=== PATIENT | male | born 1965 | race Caucasian/White ===

== ENCOUNTER 2023-07-22 17:13 | Inpatient (IN) | payer BC ==
[2023-07-22] VITALS (24 sets, daily range): BP systolic 138–159; BP diastolic 89–95; PULSE 72–105; TEMP 98.3–98.5; O2SAT 96–98
[~2023-07-22] VITALS: Ht 170.2 cm; Wt 80.6 kg
[2023-07-22 17:27] LABS: BASO # 0.1 K/mm3 (0.0-0.2); BASO % 0.6 % (0.0-2.0); EOS # 0.1 K/mm3 (0.0-0.7); EOS % 1.1 % (0.0-4.0); GRAN # 6.4 K/mm3 (1.4-6.5); GRAN % 74.2 % (42.2-75.2); HEMATOCRIT 38.9 % (42.0-52.0); HEMOGLOBIN 13.1 g/dl (13.5-18.0); LYMPH # 1.3 K/mm3 (1.2-3.4); LYMPH % 14.7 % (20.0-51.0); MEAN CELL VOLUME 87 fl (80.0-100.0); MEAN CORPUSCULAR HEMOGLOBIN 29 pg (27-31); MEAN CORPUSCULAR HGB CONC 34 g/dl (33.0-37.0); MONO # 0.8 K/mm3 (0.1-0.6); MONO % 9.2 % (1.7-9.3); PLATELET COUNT 188 K/mm3 (130-400); RED BLOOD COUNT 4.45 M/mm3 (4.20-5.60); REDCELL DISTRIBUTION WIDTH-CV 12.7 % (11.5-14.5)
[2023-07-22] MEDS ORDERED: Morphine 4 MG/ML VIAL IV ONE (17:30)
[2023-07-22] MEDS ORDERED: Heparin/D5W 250 ML IV SCH ×2 (17:45→18:45)
[2023-07-22] MEDS ORDERED: Heparin 5,000 UNITS/ML 1 ML VIAL IV PRN ×2 (17:45→18:45)
[2023-07-22] MEDS ORDERED: Nitroglycerin/D5W 250 ML IV ONE (17:45)
[2023-07-22] MEDS ORDERED: Heparin 5,000 UNITS/ML 1 ML VIAL IV ONE (17:45)
[2023-07-22 18:15] LABS: ALBUMIN 4.4 g/dL (3.5-5.0); CALCIUM 9.6 mg/dL (8.4-10.2); CREATININE, serum 1.08 mg/dL (0.72-1.25); POTASSIUM 4.4 mEq/L (3.5-4.5); TOTAL PROTEIN 7.5 g/dl (6.2-8.1)
[2023-07-22 18:26] LABS: TROPONIN-I 0.072 ng/mL (0.00-0.033)
[2023-07-22] MEDS ORDERED: Docusate Sodium 100 MG CAP PO PRN (18:45)
[2023-07-22] MEDS ORDERED: Ondansetron 4 MG/2 ML VIAL IV PRN (18:45)
[2023-07-22] MEDS ORDERED: Polyethylene Glycol 3350 17 GM PDS PO PRN (18:45)
[2023-07-22] MEDS ORDERED: Acetaminophen 325 MG TAB PO PRN (18:45)
[2023-07-22] MEDS ORDERED: Nitroglycerin/D5W 250 ML IV SCH (18:45)
[2023-07-22] MEDS ORDERED: Morphine 4 MG/ML VIAL IV PRN (19:00)
[2023-07-22] MEDS ORDERED: ASPIRIN 81M81 MG/TA2 PO (19:01)
[2023-07-22] MEDS ORDERED: TOPROL XL 25MG25 MG PO (19:01)
[2023-07-22 19:07] LABS: PARTIAL THROMBOPLASTIN TIME 123.8 SECONDS (26.0-37.0)
[2023-07-22] MEDS ORDERED: Atorvastatin 40 MG TAB PO SCH (21:00)
[2023-07-22] MEDS ORDERED: Dextrose (Glucose) 15 GM (4 x 3.75 GM) Chewable TABLET PACK PO PRN (21:30)
[2023-07-22] MEDS ORDERED: Glucagon 1 MG VIAL IM PRN (21:30)
[2023-07-22] MEDS ORDERED: Dextrose 50% Water 25 GM/50 ML SYRINGE IV PRN (21:30)
[2023-07-22] MEDS ORDERED: NS 1,000 ML IV SCH (23:30)
[2023-07-23] VITALS (90 sets, daily range): BP systolic 129–169; BP diastolic 78–104; PULSE 65–86; TEMP 98–98.5; O2SAT 93–99
[2023-07-23 03:46] LABS: BASO # 0.1 K/mm3 (0.0-0.2); BASO % 0.7 % (0.0-2.0); EOS # 0.1 K/mm3 (0.0-0.7); EOS % 1.2 % (0.0-4.0); GRAN # 5.1 K/mm3 (1.4-6.5); GRAN % 65.8 % (42.2-75.2); HEMATOCRIT 37.1 % (42.0-52.0); HEMOGLOBIN 12.6 g/dl (13.5-18.0); LYMPH # 1.6 K/mm3 (1.2-3.4); LYMPH % 21.3 % (20.0-51.0); MEAN CELL VOLUME 86 fl (80.0-100.0); MEAN CORPUSCULAR HEMOGLOBIN 29 pg (27-31); MEAN CORPUSCULAR HGB CONC 34 g/dl (33.0-37.0); MEAN PLATELET VOLUME 10.2 fl (7.4-10.4); MONO # 0.8 K/mm3 (0.1-0.6); MONO % 10.7 % (1.7-9.3); PLATELET COUNT 210 K/mm3 (130-400); RED BLOOD COUNT 4.33 M/mm3 (4.20-5.60); REDCELL DISTRIBUTION WIDTH-CV 12.8 % (11.5-14.5)
[2023-07-23 04:02] LABS: CALCIUM 8.8 mg/dL (8.4-10.2); CREATININE, serum 0.8 mg/dL (0.72-1.25); POTASSIUM 4.1 mEq/L (3.5-4.5)
--- NOTE | 2023-07-23 07:00 | NUR ---
REPORT RECEIVED FROM ILDA ROBIN. PT RESTING IN BED. NITRO AND HEPARIN INFUSING ORDERED. PT IS ALERT AND ORIENTED, USES CALL LIGHT FOR NEEDS.
[2023-07-23] MEDS ORDERED: Insulin Lispro (HumaLOG) SQ SCH (08:00)
[2023-07-23 08:47] LABS: CHOLESTEROL RISK RATIO 4.1
[2023-07-23] MEDS ORDERED: Pantoprazole 40 MG in NS 10 ML IV SCH (09:00)
[2023-07-23] MEDS ORDERED: 1/2 NS 1,000 ML IV SCH ×2 (09:15→12:45)
--- NOTE | 2023-07-23 09:45 | NUR ---
SEE MERGE FOR PROCEDURE DOCUMENTATION
[2023-07-23] MEDS ORDERED: Bivalirudin 250 MG in NS 50 ML IV SCH (10:39)
[2023-07-23] MEDS ORDERED: Ticagrelor 90 MG TAB PO SCH ×2 (10:41→21:00)
[2023-07-23] MEDS ORDERED: fentaNYL 50 MCG/ML 2 ML VIAL IV SCH (10:42)
[2023-07-23] MEDS ORDERED: Midazolam 2 MG/2 ML VIAL IV SCH (10:43)
[2023-07-23] MEDS ORDERED: Verapamil 2.5 MG/ML 2 ML VIAL IA SCH (10:51)
[2023-07-23] MEDS ORDERED: Heparin 1,000 UNITS/ML 10 ML Multi-Dose VIAL IV SCH (10:53)
[2023-07-23] MEDS ORDERED: Heparin 1,000 UNITS/ML 10 ML Multi-Dose VIAL IA SCH (10:54)
[2023-07-23] MEDS ORDERED: Nitroglycerin 100 MCG/ML (Cath Lab) 10 ML VIAL INCOR SCH (10:56)
[2023-07-23] MEDS ORDERED: Iohexol 350 - 100 ML VIAL INCOR ONE (10:57)
--- NOTE | 2023-07-23 11:12 | NUR ---
PATIENT ALERT AND ORIENTED, DENIES CHEST PAIN OR SOB. DENIES NAUSEA. REPORTS HEADACHE FROM PRE-PROCEDURE IS IMPROVED. PATIENT TRANSFERRED VIA SLIDEBOARD TO BED, POSITIONED FOR COMFORT. RADIAL SITE CLEANED WITH Q-TIP PER ILDA COHEN. TRANSFER OF CARE REPORT TO ILDA GARCES. PATIENT TRANSPORTED VIA BED AND BUMPER STRAIGHTENER TO ICU 8. SPOUSE BROUGHT TO BEDSIDE. VITAL SIGNS TAKEN ON ARRIVAL, VSS. RIGHT RADIAL SITE REMAINS CDI. CALL LIGHT PLACED WITHIN REACH, BED IN LOWEST POSITION, X3 BEDRAILS IN PLACE.
--- NOTE | 2023-07-23 13:52 | NUR ---
Bar Host/Hostess met with patient and to discuss discharge planning. Patient verified that he and Christina ([phone]) live in [place]. Patient sees Dr. Freitas as his PCP, uses [facility] pharmacy, and has a bipap at home that he doesn't use. Patient stated he requires no DME and plans to return home as soon as possible. No discharge needs identified at this time. Discharge plan: Home
--- NOTE | 2023-07-23 19:25 | NUR ---
PATIENT RESTING IN BED ALERT AND CALM. RIGHT RADIAL CATH SITE INTACT. NO ACUTE EVENTS.
[2023-07-24] VITALS (63 sets, daily range): BP systolic 161–165; BP diastolic 84–93; PULSE 64–79; TEMP 98; O2SAT 94–99
[2023-07-24 03:35] LABS: BASO % 0.1 % (0.0-2.0); EOS # 0.1 K/mm3 (0.0-0.7); EOS % 0.7 % (0.0-4.0); GRAN # 5.9 K/mm3 (1.4-6.5); GRAN % 72.1 % (42.2-75.2); HEMATOCRIT 39.4 % (42.0-52.0); HEMOGLOBIN 13.6 g/dl (13.5-18.0); LYMPH # 1.4 K/mm3 (1.2-3.4); LYMPH % 16.7 % (20.0-51.0); MEAN CELL VOLUME 85 fl (80.0-100.0); MEAN CORPUSCULAR HEMOGLOBIN 29 pg (27-31); MEAN CORPUSCULAR HGB CONC 35 g/dl (33.0-37.0); MEAN PLATELET VOLUME 10.2 fl (7.4-10.4); MONO # 0.8 K/mm3 (0.1-0.6); MONO % 10.2 % (1.7-9.3); PLATELET COUNT 228 K/mm3 (130-400); RED BLOOD COUNT 4.62 M/mm3 (4.20-5.60); REDCELL DISTRIBUTION WIDTH-CV 12.6 % (11.5-14.5)
[2023-07-24 03:43] LABS: CALCIUM 9.2 mg/dL (8.4-10.2); CREATININE, serum 0.97 mg/dL (0.72-1.25); POTASSIUM 4.3 mEq/L (3.5-4.5)
--- NOTE | 2023-07-24 07:00 | NUR ---
REPORT RECEIVED FROM ILDA EDMONDSON. PT RESTING IN BED, VSS ON ROOM AIR. CATH SITE TO R RADIAL ARTERY WNL. PT IS ALERT AND ORIENTED, USES CALL LIGHT FOR NEEDS.
--- NOTE | 2023-07-24 10:14 | NUR ---
Reviewed risk factors for heart disease. Covered applicable modifiable risk factors including the following: tobacco cessation, HTN, hyperlipidemia, diabetes, overweight/obesity, sedentary lifestyle, and stress/depression. Patient verbalized understanding. Discussed cardiac rehab phase 2 program. Patient states that he would like to talk with his about participating. Cardiac rehab staff will follow up with patient by phone in a few days.
[2023-07-24] MEDS ORDERED: BRILINTA90 MG PO (10:40)
[2023-07-24] MEDS ORDERED: LIPITOR 80MG80 MG PO (10:40)
[2023-07-24] MEDS ORDERED: TOPROL XL 25MG25 MG PO (10:41)
[2023-07-24] MEDS ORDERED: COZAAR 25MG25 MG/TAB PO (10:41)
[2023-07-24] MEDS ORDERED: ASPIRIN E.C. 8181 MG PO (10:41)
[2023-07-24] MEDS ORDERED: NITROSTAT0.4 MG/TAB SL (10:43)
--- NOTE | 2023-07-24 11:57 | NUR ---
PT STABLE THROUGHOUT MORNING, CATH SITE WNL, PT DENIES ANY CHEST PAIN. PERIPHREAL IV'S REMOVED. PT GIVEN D/C PACKET INCLUDING FOLLOW UP APPTS, DC EDUCATION, AND MED LIST. PACKET REVIEWED IN DETAIL W/ PT AND SIGNIFICANT OTHER, ALL QUESTIONS ANSWERED. PT D/C'D VIA WC BY THIS NURSE AT 1126.
== END 2023-07-24 11:26 | disposition home or self-care (01) | DRG 322 ==
LOC: COL.ER 17:13 → ICU 18:39
PROVIDERS: Nurse Practitioner; ADMIT Internal Medicine
PROC: 027034Z Dilation of Coronary Artery, One Artery with Drug-eluting Intraluminal Device, Percutaneous Approach (ICD-10-PCS; principal; 2023-07-23)
PROC: 4A023N7 Measurement of Cardiac Sampling and Pressure, Left Heart, Percutaneous Approach (ICD-10-PCS; 2023-07-23)
PROC: B2111ZZ Fluoroscopy of Multiple Coronary Arteries using Low Osmolar Contrast (ICD-10-PCS; 2023-07-23)
DX: I21.4 Non-ST elevation (NSTEMI) myocardial infarction (principal); I10 Essential (primary) hypertension; E78.5 Hyperlipidemia, unspecified; G47.33 Obstructive sleep apnea (adult) (pediatric); E66.9 Obesity, unspecified; I34.0 Nonrheumatic mitral (valve) insufficiency; I25.110 Atherosclerotic heart disease of native coronary artery with unstable angina pectoris; E11.9 Type 2 diabetes mellitus without complications; Z95.5 Presence of coronary angioplasty implant and graft; Z79.82 Long term (current) use of aspirin; Z79.899 Other long term (current) drug therapy; Z87.891 Personal history of nicotine dependence; Z91.148 Patient's other noncompliance with medication regimen for other reason; Z68.27 Body mass index [BMI] 27.0-27.9, adult
CPT/HCPCS: C1769; C1874; C1887; C9113; C9600; J0583; J1644; J2250; J2270; J2305; J3010; J7030; Q9967